=== PATIENT | male | born 1975 | race Caucasian/White ===

== ENCOUNTER 2017-03-31 19:05 | Emergency (ER) | payer MEDICAID, OTHER ==
[2017-03-31 19:05] VITALS: BMI 30.5
[2017-03-31 19:17] VITALS: BP 139/88; PULSE 84; RESP 18; TEMP 98.8; O2SAT 99
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
== END 2017-03-31 20:22 | disposition home or self-care (01) ==
LOC: H.ER 19:05
DX: S20.219A Contusion of unspecified front wall of thorax, initial encounter (principal); V43.52XA Car driver injured in collision with other type car in traffic accident, initial encounter; Y92.410 Unspecified street and highway as the place of occurrence of the external cause
CPT/HCPCS: 71101; 96372; 99284; J1885

== ENCOUNTER 2018-06-03 12:02 | Emergency (ER) | payer OTHER ==
[2018-06-03 12:03] VITALS: BMI 30.5
--- NOTE | 2018-06-03 13:08 | RAD ---
Date of service: 06/03/2018 HISTORY: Chest pain COMPARISON: 03/31/2017 TECHNIQUE: Chest PA and lateral FINDINGS: LINES AND TUBES: None. LUNG AND PLEURA: The lungs are well inflated and clear. No pleural effusion or pneumothorax. HEART AND MEDIASTINUM: The heart is not enlarged. No aortic atherosclerotic calcification present. The hilar and mediastinal contours are within normal limits. SKELETAL STRUCTURES: The bony structures are within normal limits for the patient's age. VISUALIZED UPPER ABDOMEN: Normal. OTHER FINDINGS: None. IMPRESSION: No active pulmonary disease.
[2018-06-03 13:28] LABS: BASO # 0.1 K/uL (0.0-0.2); BASO % 0.7 % (0.0-2.0); EOS # 0.1 K/uL (0.0-0.7); EOS % 0.8 % (0.0-4.0); HEMOGLOBIN 14.9 g/dL (12.0-18.0); MEAN CORPUSCULAR HGB CONC 34.5 g/dL (33.0-37.0); MEAN PLATELET VOLUME 9.4 fl (7.2-11.7); MONO # 0.4 K/uL (0.0-0.8); MONO % 5.7 % (0.0-10.0); NEUT # 5.3 K/uL (1.8-7.0); NEUT % 66.8 % (50.0-75.0); NRBC % 0.1 % (0.0-0.0); RBC 4.96 Mil/uL (4.40-5.90); RED CELL DISTRIBUTION WIDTH 12.9 % (11.5-14.5); WHITE BLOOD COUNT 7.9 K/uL (4.8-10.8)
[2018-06-03 13:41] LABS: PROTHROMBIN TIME 11.7 Seconds (9.8-13.1)
[2018-06-03 13:42] LABS: ALB/GLOB RATIO 1.3 (1.0-2.1); ALBUMIN 4.8 g/dL (3.5-5.0); ALT/SGPT 45 U/L (21-72); AST/SGOT 37 U/L (17-59); BLOOD UREA NITROGEN 16 mg/dl (9-20); CALCIUM 9.5 mg/dL (8.4-10.2); GFR NON-AFRICAN AMERICAN > 60
[2018-06-03 13:44] LABS: PARTIAL THROMBOPLASTIN TIME 32.3 Seconds (25.6-37.1)
[2018-06-03 13:48] LABS: D DIMER < 200 ng/mlDDU (0-230)
--- NOTE | 2018-06-03 14:22 | ED PDOC ---
HPI: Chest Pain Time Seen by Provider: 06/03/18 12:19 Chief Complaint (Nursing): Chest Pain Chief Complaint (Provider): Chest Pain History Per: Patient History/Exam Limitations: no limitations Onset/Duration Of Symptoms: Days (x2) Current Symptoms Are (Timing): Still Present Additional Complaint(s): 42 year old male presents to the ED for evaluation of left sided chest pain with deep breaths only for the past two days. Patient reports being seen at the [facility] where he had an EKG done, given baby ASA and told to come to ED but went home. Today he states having some numbness in his left neck along with pain down his left arm. Of note, he says he just got over a cold before his symptoms began. Otherwise denies shortness of breath, cough, and cocaine use. PMD: none provided Past Medical History Reviewed: Historical Data, Nursing Documentation, Vital Signs Vital Signs: Last Vital Signs Temp 98.1 F 06/03/18 12:09 Pulse 75 06/03/18 12:09 Resp 16 06/03/18 12:09 BP 133/78 06/03/18 12:09 Pulse Ox 99 06/03/18 12:09 - Medical History PMH: Fractures (LEFT LOWER LEG/ CHILDHOOD) Denies: Chronic Kidney Disease - Surgical History Surgical History: Hernia Repair (x 3) - Family History Family History: States: Unknown Family Hx - Social History Current smoker - smoking cessation education provided: Yes Alcohol: Social Drugs: Denies - Home Medications Home Medications: Ambulatory Orders Medication Instructions Recorded Cyclobenzaprine [Cyclobenzaprine 10 mg PO TID PRN #20 tab 03/31/17 HCl] Naproxen [Naprosyn] 500 mg PO BID #20 tab 03/31/17 traMADol [Ultram] 50 mg PO TID PRN #15 tab 03/31/17 Naproxen [Naprosyn] 500 mg PO BID PRN #15 tablet 06/03/18 - Allergies Allergies/Adverse Reactions: Allergies Allergy/AdvReac Type Severity Reaction Status Date / Time No Known Allergies Allergy Verified 09/30/15 08:34 BHUMI Risk Score for UA/NSTEMI - BHUMI Risk Score Age > 64: NO 3 or more CAD Risk Factors: NO Known CAD (Stenosis greater than 50%): NO Aspirin use in past 7 days: YES Severe Angina: NO EKG ST changes greater than 0.5mm: NO Positive Cardiac Marker: NO BHUMI Score: 1 Risk %: 5% Review of Systems ROS Statement: Except As Marked, All Systems Reviewed And Found Negative Cardiovascular: Positive for: Chest Pain (left sided with deep breaths) Respiratory: Negative for: Cough, Shortness of Breath Musculoskeletal: Positive for: Arm Pain (left) Neurological: Positive for: Numbness (in left neck) Physical Exam - Reviewed Nursing Documentation Reviewed: Yes Vital Signs Reviewed: Yes - Physical Exam Appears: Positive for: No Acute Distress Head Exam: Positive for: ATRAUMATIC, NORMOCEPHALIC Skin: Positive for: Normal Color, Warm, Dry Eye Exam: Positive for: Normal appearance, EOMI, PERRL ENT: Positive for: Normal ENT Inspection Neck: Positive for: Normal, Painless ROM, Supple Cardiovascular/Chest: Positive for: Regular Rate, Rhythm, Chest Non Tender Respiratory: Positive for: Normal Breath Sounds. Negative for: Respiratory Distress Gastrointestinal/Abdominal: Positive for: Normal Exam, Soft. Negative for: Tenderness Back: Positive for: Normal Inspection Extremity: Positive for: Normal ROM Neurologic/Psych: Positive for: Alert, Oriented (x3) - Laboratory Results Result Diagrams: 06/03/18 13:15 06/03/18 13:15 - ECG Interpretation Of ECG: NSR @ 72, no ST-T changes. O2 Sat by Pulse Oximetry: 99 (RA) Pulse Ox Interpretation: Normal Medical Decision Making Medical Decision Making: Time: 1245 Initial Impression: pleuritic chest pain Initial Plan: --EKG --CMP --Trop I --CBC with differential --D Dimer --PTT / PT --CXR 1305 CXR FINDINGS: LINES AND TUBES: None. LUNG AND PLEURA: The lungs are well inflated and clear. No pleural effusion or pneumothorax. HEART AND MEDIASTINUM: The heart is not enlarged. No aortic atherosclerotic calcification present. The hilar and mediastinal contours are within normal limits. SKELETAL STRUCTURES: The bony structures are within normal limits for the patient's age. VISUALIZED UPPER ABDOMEN: Normal. OTHER FINDINGS: None. IMPRESSION: No active pulmonary disease. Scribe Attestation: Documented by Usha Roque, acting as a scribe for Francisca Wolf MD. Provider Scribe Attestation: All medical record entries made by the Scribe were at my direction and personally dictated by me. I have reviewed the chart and agree that the record accurately reflects my personal performance of the history, physical exam, medical decision making, and the department course for this patient. I have also personally directed, reviewed, and agree with the discharge instructions and disposition. Disposition - Clinical Impression Clinical Impression: Chest pain - Disposition Referrals: Abad Tanner [facility] [place] [Outside] Disposition: Routine/Home Disposition Time: 17:21 Condition: STABLE Prescriptions: Naproxen [Naprosyn] 500 mg PO BID PRN #15 tablet PRN Reason: Pain, Moderate (4-7) Instructions: Chest Pain Forms: [employer] ([place] Islander)
[2018-06-03 17:25] VITALS: TEMP 98.3
[2018-06-03 18:20] VITALS: BP 149/87; PULSE 76; RESP 16; O2SAT 100
--- NOTE | 2018-06-03 18:55 | CARD ---
APPROVED REPORT Date of service: 06/03/2018 EKG Measurement Heart [id number] <Conclusion> Normal sinus rhythm Normal ECG
== END 2018-06-03 18:20 | disposition home or self-care (01) ==
LOC: H.ER 12:02
DX: R07.89 Other chest pain (principal)